=== PATIENT | male | born 1935 | race Caucasian/White ===

== ENCOUNTER → 2018-09-14 | Outpatient (CLI) | payer OTHER ==
[~2018-09-14] MED LIST: ASPIR 8181 MG PO; FLONASE 0.05%50 MCG NASAL; HYDROCODONE-AP1 EAC6 PO; KLOR-CON 1010 MEQ PO; LOSARTAN-HCTZ1 EAC1 PO; METAMUCIL1 EAC1 PO; TOPROL XL25 MG PO; ZOCOR20 MG PO
== END ==
LOC: CAT 12:44
DX: Z13.6 Encounter for screening for cardiovascular disorders (principal); E78.00 Pure hypercholesterolemia, unspecified

== ENCOUNTER → 2018-09-28 | Outpatient (CLI) | payer OTHER, MEDICARE ==
--- NOTE | 2018-09-28 12:46 | 2DMMODE ---
[facility] [place] [address] 2 D/M-MODE ECHOCARDIOGRAM Name: MESFINTREY P Room #: REG [facility]#: [id number] Admission: 09/28/18 Attend Phys: Afshin Jacobs MD Discharge: Date of : 33 Date of Service: 09/28/18 1245 Report #: [id number] THIS REPORT FOR: //name// APPROVED REPORT Study performed: 09/28/2018 11:27:58 EXAM: Comprehensive 2D, Doppler, and color-flow Echocardiogram Patient Location: Out-Patient Status: routine BSA: 1.98 HR: 70 bpm BP: 152/60 mmHg Rhythm: Sinus with PVCs Other Information Study Quality: Good Indications Dyspea on exertion, chest pain. Hx: HTN 2D Dimensions RVDd: 36.36 mm IVSd: 12.00 (7-11mm) LVOT Diam: 20.22 (18-24mm) LVDd: 46.24 mm PWd: 12.00 (7-11mm) Ascending Ao: 32.20 (22-36mm) LVDs: 27.34 (25-40mm) Aortic Root: 30.68 mm Volumes Left Atrial Volume (Systole) Single Plane 4CH: 61.31 mL Single Plane 2CH: 73.99 mL LA ESV Index: 36.00 mL/m2 Aortic Valve AoV Peak Genaro.: 1.57 m/s AO Peak Gr.: 9.87 mmHg LVOT Max P.81 mmHg LVOT Max V: 1.10 m/s WINSTON Vmax: 2.24 cm2 Mitral Valve E/A Ratio: 1.1 MV Decel. Time: 194.11 ms MV E Max Genaro.: 0.93 m/s [facility] [address] [address] 2 D/M-MODE ECHOCARDIOGRAM Name: TREY TOURE Room #: [facility]#: [id number] Admission: 09/28/18 Attend Phys: Afshin Jacobs MD Discharge: Date of : 33 Date of Service: 09/28/18 1245 Report #: [id number] MV A Genaro.: 0.85 m/s MV PHT: 56.29 ms IVRT: 55.36 ms Pulmonary Valve PV Peak Genaro.: 0.94 m/s PV Peak Gr.: 3.53 mmHg Pulmonary Vein P Vein S: 0.92 m/s P Vein A: 0.33 m/s P Vein D: 0.55 m/s P Vein A Dur.: 147.6 msec P Vein S/D Ratio: 1.67 Tricuspid Valve TR Peak Genaro.: 2.42 m/s RAP Estimate: 5.00 mmHg TR Peak Gr.: 23.33 mmHg PA Pressure: 28.00 mmHg Left Ventricle The left ventricle is normal size. There is normal LV segmental wall motion. Mild concentric left ventricular hypertrophy. Left ventricular systolic function is normal. LVEF is 60-65%. Moderate diastolic dysfunction is present (pseudonormal filling). Right Ventricle The right ventricle is normal size. The right ventricular systolic function is normal. Atria Left atrium is mildly dilated. Right atrium is mildly dilated. Aortic Valve The Aortic valve is mildly sclerotic. No aortic regurgitation is present. There is no aortic valvular stenosis. Mitral Valve Mitral valve leaflets are mildly thickened. Mild mitral annular calcification. Mild to moderate mitral regurgitation; eccentric jet. No evidence of mitral valve stenosis. Tricuspid Valve The tricuspid valve is normal in structure. Trace to mild tricuspid regurgitation. Estimated PAP is 28mmHg. Pulmonic Valve The pulmonary valve is normal in structure. Mild pulmonic [address] [address] 2 D/M-MODE ECHOCARDIOGRAM Name: TREY TOURE [id number] Admission: 09/28/18 Attend Phys: Afshin Jacobs MD Discharge: Date of : 33 Date of Service: 09/28/18 1245 Report #: [id number] regurgitation. Great Vessels The aortic root is normal in size. The ascending aorta is normal in size. IVC is normal in size and collapses >50% with inspiration. Pericardium There is no pericardial effusion. <Conclusion> The left ventricle is normal size. Mild concentric left ventricular hypertrophy. Left ventricular systolic function is normal. Moderate diastolic dysfunction is present (pseudonormal filling). The right ventricle is normal size. Left atrium is mildly dilated. Right atrium is mildly dilated. The Aortic valve is mildly sclerotic. Mitral valve leaflets are mildly thickened. Mild to moderate mitral regurgitation; eccentric jet. Trace to mild tricuspid regurgitation. Estimated PAP is 28mmHg. <ELECTRONICALLY SIGNED> By: Afshin Jacobs MD 09/28/18 1245 1245 1245 Afshin Jacobs MD /INF
--- NOTE | 2018-09-28 13:01 | EXE ---
[facility] [address] [address] STRESS ECHOCARDIOGRAM Name: MESFINTREY P Room #: REG [facility]#: [id number] Admission: 09/28/18 Attend Phys: Afshin Jacobs MD Discharge: Date of : 33 Date of Service: 09/28/18 1301 Report #: [id number] THIS REPORT FOR: //name// APPROVED REPORT Study performed: 09/28/2018 11:54:34 Exam: Stress Echocardiogram Indication: Dyspnea on exertion, chest pain Patient Location: Out-Patient Stress Nurse: Antonietta Demarco RN Status: routine Ht: 5 ft 8 in HR: 70 bpm BP: 152/60 mmHg Medical History Medications: Lesartan Allergies: No known drug allergies Cardiac Risk Factors: HTN Procedure The patient underwent an Exercise Stress Test using the Jose E Protocol. Blood pressure, heart rate, and EKG were monitored. An Echocardiogram was performed by submarine cable equipment technician in four stages in quad fashion. At peak stress, four selected images were obtained and placed side by side with resting images for comparison. Stress Test Details Stress Test: Exercise stress testing was performed using a Jose E protocol. HR Resting HR: 70 bpm Max Heart Rate (APMHR): 136 bpm Max HR Achieved: 148 bpm Target HR (85% APMHR): 115 bpm % of APMHR: 108 Recovery HR: 87 bpm HR response to stress: Normal HR response to stress BP Resting BP: 152/60 mmHg Max BP: 200/60 mmHg Recovery BP: 184/78 mmHg BP response to stress: Hypertensive response to stress. ECG [facility] [address] [address] STRESS ECHOCARDIOGRAM Name: TREY TOURE Room #: REG [facility]#: [id number] Admission: 09/28/18 Attend Phys: Afshin Jacobs MD Discharge: Date of : 33 Date of Service: 09/28/18 1301 Report #: [id number] Resting ECG: Sinus Rhythm Stress ECG: Sinus Rhythm with ST-T abnormalities ST Change: Ischemic Maximum ST Deviation: 1.5 mm Clinical Reason for Termination: moderate fatigue, protocol complete Stress Symptoms: Dyspnea Exercise duration: 3 min 42 sec Highest Stage Achieved: Stage 2: 2.5 mph at 12% grade. Exercise capacity: 5.7 METs Pre-Stress Echo The resting Echocardiogram showed normal left ventricular contractility with an estimated Ejection Fraction of about 60-65%. Mild to moderate Mitral regurgitation, trace TR. Post-Stress Echo The stress Echocardiogram showed left ventricular contractility with an estimated Ejection Fraction of about 65%. The stress Echocardiogram demonstrated wall motion abnormality in the septal wall. Clinical ECG evidence for ischemia. Conclusion Clinical Response: Indeterminant Exercise Capacity: Below Average Stress ECG Response: Ischemic Stress Echo Images: Ischemic Other Information Study Quality: Good <ELECTRONICALLY SIGNED> By: Afshin Jacobs MD 09/28/181300 00 00 Afshin Jacobs MD /INF
== END ==
LOC: CV 11:04
DX: I35.8 Other nonrheumatic aortic valve disorders (principal); I34.0 Nonrheumatic mitral (valve) insufficiency; I37.1 Nonrheumatic pulmonary valve insufficiency; I51.7 Cardiomegaly

== ENCOUNTER → 2018-10-30 | Outpatient (CLI) | payer OTHER, MEDICARE ==
[~2018-10-30] VITALS: Ht 172.7 cm; Wt 84.8 kg
[~2018-10-30] MED LIST changes: +CO-ENZYME Q-1010 MG PO; +COZAAR 25 MG TA25 M1 PO; +IRON325 PO; +KRILL OIL 1,001 EAC1 PO; +METOPROLOL SUCC50 MG PO; +VITAMIN B12-FO1 EAC1 PO; +VITAMIN E400 UNIT PO
[2018-10-30 08:29] LABS: HEMATOCRIT 38.5 % (42.0-52.0); HEMOGLOBIN 13.7 gm/dL (14.0-18.0); MCH 34.9 pg (26.0-34.0); MCHC 35.5 g/dL (28.0-37.0); MCV 98.5 fL (80.0-100.0); RBC 3.91 mil/uL (4.50-6.00); RDW 13.4 % (10.5-14.5); WBC 6.9 thou/uL (4.0-11.0)
[2018-10-30 08:39] VITALS: BP 156/60
[2018-10-30 08:40] LABS: CALCIUM 9.4 mg/dL (8.5-10.1); CREATININE 1.1 mg/dL (0.7-1.3); POTASSIUM 4.6 mmol/L (3.5-5.1)
--- NOTE | 2018-10-30 09:45 | EKG ---
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: : 1935 Requested By: Afshin Jacobs Order Number: [id number] MD: Ken Gupta Measurements Intervals [place] Rate: 62 P: 72 CO: 187 QRS: 38 QRSD: 101 T: 74 QT: 410 QTc: 417 Interpretive Statements Sinus rhythm Left atrial enlargement Early transition Nonspecific ST-T wave changes Compared to ECG 08/24/2017 14:17:35 no significant changes Electronically Signed On 10-30-2018 9:45:14 SELF STORAGE MANAGER by Ken Gupta [email or web address] ��������������������������������������������� <ELECTRONICALLY SIGNED> ���������������������������������������� By: Ken Gupta MD ��������������������������������������������� 10/30/18 0945 0832 1 Ken Gupta MD /[place]
--- NOTE | 2018-10-30 12:41 | CATHLAB ---
[facility] [place] [address] INVASIVE PROCEDURE REPORT Name: MESFINTREY P Room #: REG [facility]#: [id number] ������������� Admission: 10/30/18 ������������� Attend Phys: Afshin Jacobs MD Discharge: ��� ������������� ��� Date of : 33 Date of Service: 10/30/18 1241 �� Report #: [id number] �������� ��������������������������������������������[id number] THIS REPORT FOR: //name// APPROVED REPORT Study performed: 10/30/2018 09:37:13 Patient Details Patient Status: Out-Patient Room #: The patient is a 83 year-old male Event Personnel Afshin Jacobs Chief Procurement Officer, Heraclio Perrin RN, Alanna Garcia RTR, NON LICENSED NUCLEAR PLANT OPERATOR Monitor, Eric Richard Scrub Procedures Performed Art Access - R femoral artery* Left Heart Cath w/or w/o Coronaries [id number] [facility] [address] Initial Mod Sed Same Phys/QHP Gr5y [id number] Hemostasis with Manual pressure Indication Dyspnea, Positive stress test, Chest pain Risk Factors Hypercholesterolemia, Hypertension Procedure Narrative The Right Groin^ was infiltrated with 1% Lidocaine subcutaneous anesthesia. A PINNACLE 4FR Sheath #[id number] sheath was inserted into the RFA^. Coronary angiography was performed using coronary diagnostic catheters. The right coronary system was accessed and visualized with a JR4 catheter. The left coronary system was accessed and visualized with a JL4 catheter. The left ventricle was accessed and visualized with a angled pigtail catheter. Left ventricular/Aortic Valve gradient assessed via catheter pullback. Left ventriculogram was performed in 30 degree projection. Hemostasis was obtained with manual pressure following sheath removal without any complications. The patient tolerated the procedure well and there were no complications associated with the procedure. There was no hematoma. Intraoperative Conscious Sedation Sedation start time: 09:48 Case end Time: 10:20 Fentanyl 50 mcg Versed 1.5 mg [facility] [place] [address] INVASIVE PROCEDURE REPORT Name: TREY TOURE Room #: REG [facility]#: [id number] ������������� Admission: 10/30/18 ������������� Attend Phys: Afshin Jacobs MD Discharge: ��� ������������� ��� Date of : 33 Date of Service: 10/30/18 1241 �� Report #: [id number] �������� ��������������������������������������������[id number] Fluoro Time: 1.42 minutes Dose: DAP 2747.20 cGycm2 355 mGy Contrast Type and Amount: Omnipaque-80ml Coronary Angiography The patient's coronary anatomy is co- dominant. Diagnostic Cath Left Main This is a patent vessel, with no flow-limiting lesions. LAD This is a moderate size caliber vessel, traversing the anterior wall and wrapping around the apex. There is mild disease in the ostium, 20%. Diagonal 1 This is a patent vessel, with no flow-limiting lesions. Circumflex This is a codominant vessel, with mild disease at the ostium, 20%. OM1 This is a patent vessel, with no flow-limiting lesions. OM2 This is a patent vessel, with no flow-limiting lesions. Right Coronary This is a patent vessel, with no flow-limiting lesions. R PDA This is a patent vessel, with no flow-limiting lesions. Left Ventriculography The left ventricle is normal in size with normal contractility. The left ventricular ejection fraction is estimated to be 55-60%. Hemodynamics The aortic pressure is 170/66 mmHg with a mean of 103 mmHg. The left ventricular pressure is 169/16 mmHg with a mean of mmHg. The left ventricular end diastolic pressure is 36 mmHg. Conclusion 1. 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 2. Codominant system. 3. Normal LV systolic function. 4. Recommend risk factor management. ��������������������������������������������� <ELECTRONICALLY SIGNED> ���������������������������������������� By: Afshin Jacobs MD ��������������������������������������������� 10/30/18 1241 1241 1241 Afshin Jacobs MD /INF
== END | disposition home or self-care (01) ==
LOC: CATH 10-19 11:31
PROVIDERS: Internal Medicine Cardiovascular Disease
DX: I25.10 Atherosclerotic heart disease of native coronary artery without angina pectoris (principal); I10 Essential (primary) hypertension; E78.5 Hyperlipidemia, unspecified; E11.9 Type 2 diabetes mellitus without complications; Z87.891 Personal history of nicotine dependence; Z82.49 Family history of ischemic heart disease and other diseases of the circulatory system; Z90.49 Acquired absence of other specified parts of digestive tract; G47.33 Obstructive sleep apnea (adult) (pediatric); Z98.890 Other specified postprocedural states; Z79.899 Other long term (current) drug therapy

== ENCOUNTER → 2019-08-06 | Outpatient (CLI) | payer OTHER, MEDICARE | LOC: ULTRA 13:37 | DX: M71.21 Synovial cyst of popliteal space [Baker], right knee (principal) ==

== ENCOUNTER → 2019-11-21 | Outpatient (CLI) | payer OTHER, MEDICARE | LOC: SJCVC 11:05 | DX: R94.31 Abnormal electrocardiogram [ECG] [EKG] (principal); I25.10 Atherosclerotic heart disease of native coronary artery without angina pectoris; I10 Essential (primary) hypertension; E78.5 Hyperlipidemia, unspecified; Z90.49 Acquired absence of other specified parts of digestive tract; Z96.652 Presence of left artificial knee joint; Z79.899 Other long term (current) drug therapy; Z87.891 Personal history of nicotine dependence ==

== ENCOUNTER → 2019-11-28 | Outpatient (CLI) | payer OTHER, MEDICARE | LOC: RAD 09:11 | DX: R05 Cough (principal) ==

== ENCOUNTER → 2020-01-31 | Outpatient (CLI) | payer OTHER, MEDICARE ==
[~2020-01-31] VITALS: Ht 172.7 cm; Wt 83.9 kg
[~2020-01-31] MED LIST changes: +CALCIUM500 MG PO; +FOCUS PO; +GALZIN50 MG PO; +GARLIC1 EACH PO; +IRON325 M1 PO; +JOINT HEALTH T1 EACH PO; +MAGNESIUM250 M1 PO; +NORVASC5 M1 PO; +PRESERVISION T1 EACH PO; +TURMERIC500 M2 PO; +VITAMIN B-121000 MC2 PO; +VITAMIN C500 M2 PO; +VITAMIN D3100 MCG PO
--- NOTE | 2020-02-01 16:08 | PATH ---
[facility] [address] [place] [address] PATHOLOGY RPT PROCEDURE Name: MESFINTREY Ysabel Room #: REG TOYA Soto.#: [id number] Admission: 01/31/20 Date of : 33 Discharge: Report #: [id number] Path Case #: [id number] [facility] Accession Number: [id number] . 01 Material submitted: . gastrointestinal site - BIOPSY OF GASTRITIS RULE OUT H PYLORI . 01 Clinical history: . R/O H. pylori; anemia . 02 Diagnosis: Gastric mucosa, gastritis, rule out H. pylori, endoscopic biopsy: - Mild reactive gastropathy. - Negative for intestinal metaplasia or atrophy. - Negative for Helicobacter pylori (properly controlled immunohistochemical performed). (IUV:pit 02/01/2020) QTP 02/01/2020 1209 Local . 02 Electronically signed: . Radha Masters MD, Pathologist NPI- [id number] . 01 Gross description: . The specimen is received in formalin, labeled "Trey Esquivel, biopsy of gastritis, R/O H. pylori". Received are four segments of pale jenkins soft tissue ranging in size from 0.3 to 0.4 cm in maximum dimensions. The specimen is submitted entirely in cassette A1. (CAA; 01/31/2020) QA/[facility] 01/31/2020 1336 Local . 02 Pathologist provided ICD-10: K31.9 . 02 CPT . 164468, D84771 Specimen Comment: A courtesy copy of this report has been sent to [phone] Specimen Comment: Report sent to Performed at: [address], [place] [id number] MD Edwar Holland MD Phone: [phone] Performed at: [address] [id number] MD Radha Masters MD Phone: [phone]
--- NOTE | 2020-02-02 12:27 | P ---
[facility] [place] [address] PROCEDURE REPORT Name: TREY TOURE Room #: REG [facility]#: [id number] Admission: 01/31/20 Attend Phys: Todd No MD Discharge: Date of : 34 Report #: [id number] THIS REPORT FOR: cc: Ever Pelaez Steven F. DO Thesing, John A. MD ~ CC: Todd Pelaez MD DATE OF SERVICE: 01/31/2020 OUTPATIENT UPPER ENDOSCOPY BRIEF HISTORY: The patient is an 84-year-old male who was recently found to have evidence of mild anemia and also Hemoccult-positive stools. PREOPERATIVE DIAGNOSES: Anemia and Hemoccult-positive stools. POSTOPERATIVE DIAGNOSIS: Diffuse gastritis with small amount of retained bile in stomach. MEDICATIONS: Deep sedation with propofol per Anesthesia. SPECIMEN: Biopsies of gastritis. ESTIMATED BLOOD LOSS: 3 mL. PROCEDURE: EGD with biopsy. FINDINGS: Prior to propofol sedation, procedure of upper endoscopy was discussed with the patient as well as potential risks and its complications. He indicates he understands and desires to proceed. DESCRIPTION OF PROCEDURE: With the patient in left lateral decubitus position, the Olympus video endoscope was inserted into the cervical esophagus under direct vision without difficulty. Examination of this organ through its entire style revealed normal esophageal mucosa down the squamocolumnar junction. There were no ulcers, erosions, strictures, or masses. A hiatus hernia was not seen. The scope was advanced into the stomach, which was examined on end view as well as retroflexed views. There was a small amount of retained bile in the stomach. No ulcers, erosions, or bleeding lesions were seen. Again, there was a small amount of bile. This was aspirated away. Upon retroflexion, no mass lesions were seen. The pylorus, duodenal bulb, and postbulbar duodenal sweep were inspected and noted to be unremarkable. At that point, the scope was slowly withdrawn and careful circumferential views confirmed the above findings. The [address] [address] PROCEDURE REPORT Name: TREY TOURE Room #: REG TOYA Fong#: [id number] Admission: 01/31/20 Attend Phys: Todd No MD Discharge: Date of : 34 Report #: [id number] patient tolerated the procedure well. CONDITION OF THE PATIENT UPON DISCHARGE: Following procedure, the patient was drowsy. He was then prepared for colonoscopy. INSTRUCTIONS TO THE PATIENT AND FAMILY AT THE TIME OF DISCHARGE: A definite site of bleeding or blood loss was not identified. He does have some bile in the stomach. He has been noted to have a previous cholecystectomy and ERCP with sphincterotomy and clearance of common bile duct stones. I do not see an explanation for his anemia and Hemoccult-positive stools. We will proceed with colonoscopy at this time. He has no upper GI symptoms with regards to the bile in the stomach. If he should develop symptoms, use of sucralfate or bile-binding agent may be helpful. Proceed with colonoscopy. <ELECTRONICALLY SIGNED> By: Todd No MD 02/02/20 1227 0825 0932 Todd No MD /nt
--- NOTE | 2020-02-02 12:27 | P ---
[facility] [place] [address] PROCEDURE REPORT Name: TREY TOURE Room #: REG [facility]#: [id number] Admission: 01/31/20 Attend Phys: Todd No MD Discharge: Date of : 34 Report #: [id number] THIS REPORT FOR: cc: Ever Pelaez Steven F. DO Thesing, John A. MD ~ CC: Todd Pelaez MD DATE OF SERVICE: 01/31/2020 OUTPATIENT COLONOSCOPY BRIEF HISTORY: The patient is an 84-year-old male with recent findings of anemia and Hemoccult-positive stools. POSTOPERATIVE DIAGNOSES: 1. Diverticulosis coli, greater in left colon than right colon. 2. Moderate internal hemorrhoids. MEDICATIONS: Deep sedation with propofol per Anesthesia. SPECIMEN: None. ESTIMATED BLOOD LOSS: None. PROCEDURE: Colonoscopy to cecum and terminal ileum. FINDINGS: Prior to propofol sedation, procedure of colonoscopy was discussed with the patient as well as potential risks and its complications. He indicates he understands and desires to proceed. DESCRIPTION OF PROCEDURE: With the patient in left lateral decubitus position, digital examination was completed, which revealed some mild prolapse seen of internal hemorrhoids.. The blood was not seen. Subsequently, the Olympus video colonoscope was introduced through the rectum, advanced under direct vision to the cecum. Done with minimal difficulty. Cecum was identified by the ileocecal valve and the appendiceal orifice. I was able to visualize the distal segment of terminal ileum, which was inspected and noted to be unremarkable. At that point, the scope was slowly withdrawn and careful circumferential views were obtained. Upon slow withdrawal of the scope, the prep was good. The mucosa was within normal limits, normal vascular pattern, and normal light reflex. An occasional diverticulum was seen in the proximal colon. No bleeding lesions were seen. The patient does have a history of colon polyps. No neoplastic lesions were seen. There were noted to be a few scattered diverticula in the [facility] [address] [place] [address] PROCEDURE REPORT Name: TREY TOURE Room #: [facility]#: [id number] Admission: 01/31/20 Attend Phys: Todd No MD Discharge: Date of : 33 Report #: [id number] sigmoid colon as well. The examination was otherwise unremarkable. Vascular ectasias or bleeding source was not seen. The scope was withdrawn in the rectum, no abnormalities were seen. However, upon retroflexion, moderate internal hemorrhoids were seen. Scope was withdrawn. The patient tolerated the procedure well. CONDITION OF THE PATIENT UPON DISCHARGE: Following procedure, the patient was drowsy, arousable and conversant and will be discharged to home when fully ambulatory. INSTRUCTIONS TO THE PATIENT AND FAMILY AT THE TIME OF DISCHARGE: Source of bleeding was not identified. The patient has a history of colon polyps but no polyps were seen today. The blood could have come from his hemorrhoids. If there remains concern about anemia and occult blood loss, an M2 capsule study could be considered at a later date. He should follow up with Dr. Ever Pelaez. Return to see me as needed. At this point in life, it is unlikely he would benefit from routine colonoscopies in the future. <ELECTRONICALLY SIGNED> By: Todd No MD 02/02/20 1227 0852 0932 Todd No MD /nt
== END | disposition home or self-care (01) ==
LOC: GI 07:13
DX: D64.9 Anemia, unspecified (principal); R19.5 Other fecal abnormalities; K57.30 Diverticulosis of large intestine without perforation or abscess without bleeding; K64.8 Other hemorrhoids; K31.9 Disease of stomach and duodenum, unspecified; K29.70 Gastritis, unspecified, without bleeding; I10 Essential (primary) hypertension; E11.9 Type 2 diabetes mellitus without complications; G47.30 Sleep apnea, unspecified; Z86.010 Personal history of colon polyps; Z98.890 Other specified postprocedural states; Z86.73 Personal history of transient ischemic attack (TIA), and cerebral infarction without residual deficits; Z79.899 Other long term (current) drug therapy; Z96.653 Presence of artificial knee joint, bilateral; Z87.891 Personal history of nicotine dependence
CPT/HCPCS: 62110; 62900

== ENCOUNTER 2020-06-15 15:03 | Emergency (ER) | payer OTHER, MEDICARE ==
[~2020-06-15] VITALS: Ht 172.7 cm; Wt 83.9 kg
[2020-06-15 15:53] LABS: ABSOLUTE NEUTROPHILS 5.6 thou/uL (1.4-8.2); BASOPHILS 0.3 % (0.0-2.0); EOSINOPHILS 0.5 % (0.0-3.0); HEMATOCRIT 37.6 % (42.0-52.0); HEMOGLOBIN 13.2 gm/dL (14.0-18.0); LYMPHOCYTES 8.8 % (24.0-44.0); MCH 35.9 pg (26.0-34.0); MCHC 35.2 g/dL (28.0-37.0); MONOCYTES 10.9 % (1.0-8.0); PLATELET COUNT 168 thou/uL (150-400); POLYS 79.5 % (36.0-66.0); RBC 3.69 mil/uL (4.50-6.00); RDW 13.3 % (10.5-14.5); WBC 7.1 thou/uL (4.0-11.0)
[2020-06-15 16:06] LABS: ANION GAP 8 mmol/L (7-16); BUN 23 mg/dL (7-18); CALCIUM 9.4 mg/dL (8.5-10.1); CHLORIDE 89 mmol/L (98-107); CO2 25 mmol/L (21-32); CREATININE 1.3 mg/dL (0.7-1.3); GLUCOSE 153 mg/dL (74-106); POTASSIUM 4.5 mmol/L (3.5-5.1); SODIUM 122 mmol/L (136-145)
[2020-06-15 16:13] LABS: ALBUMIN 4.3 g/dL (3.4-5.0); SGOT 27 U/L (15-37); SGPT 32 U/L (30-65); TOTAL BILIRUBIN 0.9 mg/dL (0.2-1.0); TROPONIN-I <0.06 ng/mL (<0.06)
[2020-06-15 16:57] VITALS: BP 178/60
--- NOTE | 2020-06-16 12:40 | EKG ---
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: J : 1935 Requested By: Jeff Ceja Order Number: [id number] MD: Aldo Gomez Measurements Intervals [place] Rate: 75 P: 68 LA: 177 QRS: 31 QRSD: 105 T: 86 QT: 388 QTc: 434 Interpretive Statements Sinus rhythm Probable left atrial enlargement Minimal ST depression, lateral leads Compared to ECG 10/30/2018 08:32:23 No significant changes Electronically Signed On 06-16-2020 12:40:11 CDT by Aldo Gomez [email or web address] <ELECTRONICALLY SIGNED> By: Aldo Gomez MD, FACC 06/16/20 1240 1512 1512 Aldo Gomez MD, [facility] /EPI
== END 2020-06-15 16:57 | disposition home or self-care (01) ==
LOC: ER 15:03
PROVIDERS: Emergency Medicine
DX: R07.89 Other chest pain (principal); I10 Essential (primary) hypertension; Z86.2 Personal history of diseases of the blood and blood-forming organs and certain disorders involving the immune mechanism; Z79.82 Long term (current) use of aspirin; Z79.899 Other long term (current) drug therapy; Z88.8 Allergy status to other drugs, medicaments and biological substances

== ENCOUNTER 2020-06-27 15:48 | Emergency (ER) | payer OTHER, MEDICARE ==
[~2020-06-27] VITALS: Ht 172.7 cm; Wt 81.7 kg
[2020-06-27 16:58] LABS: HEMATOCRIT 34.8 % (42.0-52.0); HEMOGLOBIN 12.2 gm/dL (14.0-18.0); MCH 36.5 pg (26.0-34.0); MCHC 35.2 g/dL (28.0-37.0); MCV 103.8 fL (80.0-100.0); PLATELET COUNT 142 thou/uL (150-400); RBC 3.35 mil/uL (4.50-6.00); RDW 13.1 % (10.5-14.5); WBC 5.3 thou/uL (4.0-11.0)
[2020-06-27 17:09] LABS: ANION GAP 7 mmol/L (7-16); BUN 20 mg/dL (7-18); CALCIUM 9.6 mg/dL (8.5-10.1); CHLORIDE 95 mmol/L (98-107); CO2 25 mmol/L (21-32); CREATININE 1.1 mg/dL (0.7-1.3); GLUCOSE 149 mg/dL (74-106); POTASSIUM 4.6 mmol/L (3.5-5.1); SODIUM 127 mmol/L (136-145)
[2020-06-27 17:17] LABS: TROPONIN-I <0.06 ng/mL (<0.06)
[2020-06-27 17:22] LABS: ABSOLUTE NEUTROPHILS 3.7 thou/uL (1.4-8.2); MACROCYTES 1+
[2020-06-27] MEDS ORDERED: PREDNISONE 20 M20 MG PO (19:34)
[2020-06-27 20:12] VITALS: BP 142/68
--- NOTE | 2020-06-28 09:57 | EKG ---
[facility] [place] [address] ELECTROCARDIOGRAM REPORT Name: TREY TOURE Room #: [facility]#: [id number] Admission: 06/27/20 Attend Phys: Discharge: 06/27/20 Date of : 34 Report #: [id number] THIS REPORT FOR: cc: Ever Pelaez Steven F. DO Lundgren, Craig H. MD 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: no : 1935 Requested By: Rogelio Middleton Order Number: [id number] MD: Julio Cesar Hoskins Measurements Intervals [place] Rate: 64 P: 73 OR: 178 QRS: 19 QRSD: 103 T: 63 QT: 423 QTc: 437 Interpretive Statements Sinus rhythm Nonspecific ST segment abnormality Compared to ECG 06/15/2020 15:12:04 No significant change was found Electronically Signed On 06-28-2020 9:57:25 CDT by Julio Cesar Hoskins [email or web address] <ELECTRONICALLY SIGNED> By: Julio Cesar Hoskins MD, FACC 06/28/20 0957 1619 1619 Julio Cesar Hoskins MD, [facility] /EPI
== END 2020-06-27 20:12 | disposition home or self-care (01) ==
LOC: ER 15:48
PROVIDERS: Nurse Practitioner
DX: M94.0 Chondrocostal junction syndrome [Tietze] (principal); I10 Essential (primary) hypertension; Z96.653 Presence of artificial knee joint, bilateral; Z90.49 Acquired absence of other specified parts of digestive tract; Z98.61 Coronary angioplasty status; Z79.82 Long term (current) use of aspirin; Z79.899 Other long term (current) drug therapy; Z88.8 Allergy status to other drugs, medicaments and biological substances

== ENCOUNTER 2020-10-15 12:15 | Emergency (ER) | payer OTHER, MEDICARE ==
[~2020-10-15] VITALS: Ht 172.7 cm; Wt 82.6 kg
[~2020-10-15 12:15] MED LIST changes: +PREDNISONE 20 M20 MG PO
[2020-10-15] MEDS ORDERED: ULTRAM 50MG TAB50 MG PO (14:52)
[2020-10-15 14:58] VITALS: BP 143/110
== END 2020-10-15 14:58 | disposition home or self-care (01) ==
LOC: ER 12:15
DX: S80.02XA Contusion of left knee, initial encounter (principal); S80.01XA Contusion of right knee, initial encounter; S70.01XA Contusion of right hip, initial encounter; I10 Essential (primary) hypertension; E11.9 Type 2 diabetes mellitus without complications; Z86.2 Personal history of diseases of the blood and blood-forming organs and certain disorders involving the immune mechanism; Z79.82 Long term (current) use of aspirin; Z79.899 Other long term (current) drug therapy; W18.39XA Other fall on same level, initial encounter; Y93.89 Activity, other specified; Y92.89 Other specified places as the place of occurrence of the external cause; Y99.8 Other external cause status